=== PATIENT | female | born 1945 | race Caucasian/White ===

== ENCOUNTER 2019-10-24 16:01 | Inpatient (IN) | payer OTHER ==
[~2019-10-24] VITALS: Ht 160 cm; Wt 74.4 kg
--- NOTE | 2019-10-24 16:23 | NUR ---
EKG IN PROGRESS.
[2019-10-24 17:32] LABS: BASOPHIL % 0.5 % (0-2); PLATELET COUNT 233 x10^3mcL (130-400); RED CELL DISTRIBUTION WIDTH 13.8 % (11.5-14.5)
[2019-10-24 17:49] LABS: CARBON DIOXIDE 31.4 mmol/L (21-32); CHLORIDE SERUM 102 mmol/L (98-107); CREATININE SERUM 1.1 mg/dL (0.6-1.0); GLUCOSE SERUM 114 mg/dL (74-106); POTASSIUM SERUM 3.6 mmol/L (3.5-5.1); SODIUM SERUM 143 mmol/L (136-145)
[2019-10-24 17:52] LABS: ALKALINE PHOSPHATASE 52 U/L (46-116); ALT/SGPT 36 U/L (14-59); AST/SGOT 27 U/L (15-37); BILIRUBIN TOTAL 0.34 mg/dL (0.20-1.00); TOTAL PROTEIN, SERUM 7.7 g/dL (6.4-8.2)
--- NOTE | 2019-10-24 18:14 | NUR ---
PT IN ED FOR HIGH BP, STS BILAT SHOULDER PAIN X4 DAYS AND LEFT ARM PAIN ONSET TODAY. PT STS COMPLIANT WITH HTN MEDS. PER DAUGHTER PT HAD A SALTY MEAL TODAY. PT AAO4, RESP E/U, NO DISTRESS. CONNECTED TO FULL CM.
--- NOTE | 2019-10-24 18:53 | NUR ---
PT MEDICATED PER MD ORDERS, PT EDUCATED ON MEDICATION PRIOR TO ADMINISTRATION. DENIES ALLERGIES TO MEDICATIONS.
[2019-10-24] MEDS ORDERED: KAPSPARGO SPRI100 MG PO (19:48)
[2019-10-24] MEDS ORDERED: COZAAR100 MG PO (19:49)
[2019-10-24] MEDS ORDERED: VASERETIC1 EA PO (19:50)
[2019-10-24] MEDS ORDERED: ATORVASTATIN CA40 M1 PO (19:50)
--- NOTE | 2019-10-24 19:55 | NUR ---
PT AAO4, RESP E/U, NO DISTRESS/ REPORT CALLED TO JOHN OLIVER TO ASSUME CARE
--- NOTE | 2019-10-24 19:56 | NUR ---
RECEIVED REPORT FROM ER NURSE. AWAITING PTS ARRIVAL.
--- NOTE | 2019-10-24 20:05 | NUR ---
PT WAS RECEIVED BY PRIMARY NURSE SRAAI FROM ED, CAME IN DUE TO LEFT BACK AND LEFT ARM PAIN X4 DAYS AFTER LIFTING GROCERIES. AAOX4. DENIES HEADACHE/DIZZINESS. NO SOB NOTED, LUNG SOUNDS CTA. DENIES CHEST PAIN/PRESSURE, SR ON THE MONITOR. DENIES ABDOMINAL DISCOMFORT. BOWEL SOUNDS ACTIVE. VOIDS. STATED THAT SHE HAS 5/10 LEFT BACK AND LEFT ARM PAIN ONLY ON MOVEMENT. IV SITE PATENT AND INTACT. SIDE RAILS UPX2. CALL LIGHT ON REACH. PRIMARY NURSE SARAI AT BEDSIDE FOR CONTINUITY OF CARE
[2019-10-24 20:53] VITALS: BP 170/96
[2019-10-24 20:56] VITALS: Ht 160 cm; Wt 74.4 kg
--- NOTE | 2019-10-24 21:50 | NUR ---
ROUTINE MEDICATIONS WERE GIVEN AND TOLERATED WELL. NO ACUTE DISTRESS NOTED. TYLENOL PRN WAS ADMINISTER PER DEC ORDER FOR 5/10 SHOULDER PAIN. WILL REASSESS AND CHECK EFFECTIVENESS. BREATHING IS EVEN AND UNLABORED ON RA. NO SIGNS OF RESP. DISTRESS. BED IN LOWEST POSITION. CALL LIGHT WITHIN REACH. WILL CONTINUE TO MONITOR.
--- NOTE | 2019-10-24 23:40 | NUR ---
PT IS RESTING COMFORTABLY WITH EYES CLOSED, BUT EASILY AROUSABLE WHEN SPOKEN TO. BREATHING IS EVEN AND UNLABORED ON RA. NO RESP DISTRESS NOTED. BED IN LOWEST POSITION. CALL LIGHT WITHIN REACH. WILL CONTINUE TO MONITOR.
--- NOTE | 2019-10-25 01:57 | NUR ---
PT IS RESTING COMFORTABLY IN BED WITH EYES CLOSED, BUT EASILY AROUSABLE WHEN SPOKEN TO. BREATHING IS EVEN AND UNLABORED ON RA. NO SIGNS OF RESP. DISTRESS. BED IN LOWEST POSITION. CALL LIGHT WITHIN REACH. WILL CONTINUE TO MONITOR.
--- NOTE | 2019-10-25 04:05 | NUR ---
PT IS RESTING COMFORTABLY IN BED WITH EYES CLOSED, BUT EASILY AROUSABLE. BREATHING IS EVEN AND UNLABORED ON RA. NO SIGNS OF RESP DISTRESS. BED IN LOWEST POSITION. CALL LIGHT WITHIN REACH. WILL CONTINUE TO MONITOR.
[2019-10-25 05:57] VITALS: BP 137/79
--- NOTE | 2019-10-25 06:20 | NUR ---
PT SLEPT IN LONG INTERVALS THROUGHOUT THE SHIFT AND COMPLIED WITH NURSING CARE WITH NO ACUTE EVENTS OCCURRING DURING THE NIGHT. COMFORT AND SAFETY MEASURES MAINTAINED. ALL NEEDS ASSESSED AND ATTENDED TO. WILL CONTINUE TO MONITOR AND ENDORSE CARE TO DAY SHIFT NURSE.
[2019-10-25 06:52] LABS: BASOPHIL % 0.9 % (0-2); PLATELET COUNT 202 x10^3mcL (130-400); RED CELL DISTRIBUTION WIDTH 13.4 % (11.5-14.5)
--- NOTE | 2019-10-25 07:35 | NUR ---
RECEIVED PT IN BED. ASSESSED AND DOCUMENTED. STABLE. DENIES ANY PAIN THIS TIME. NO DISTRESS NOTED. SAFTEY PRECAUTIONS ARE IN PLACE. WILL MONITOR.
[2019-10-25 09:00] VITALS: BP 140/83
[2019-10-25 11:35] VITALS: BP 140/83
--- NOTE | 2019-10-25 11:55 | NUR ---
NOTIFIED DR JENKINS THAT DR QUINTANILLA SAW THE PATIENT AND OK TO DC PATIENT HOME FROM CARDIAC STANDPOINT. PER DR JENKINS OK TO DC PATIENT HOME.
--- NOTE | 2019-10-25 12:50 | NUR ---
PT'S DAUGHTER CAME TO [employer]UMINUM BOAT INSPECTOR PT. STABLE. DENIES ANY PAIN. DISCHARGE INSTRUCTIONS GIVEN, PB SIGNED AND SENT WITH PT. IV REMOVED AND DRESSING APPLIED. TELE REMOVED AND RETURNED. INTERNATIONAL REPRESENTATIVE WHEELED PT DOWN TO LOBBY ACCOMPANIED WITH DAUGHTER. PT DC HOME.
== END 2019-10-25 12:55 | disposition home or self-care (01) | DRG 563 ==
LOC: ED 16:01 → DU 18:51
PROVIDERS: Emergency Medicine; Specialist; ADMIT Internal Medicine
DX: S46.912A Strain of unspecified muscle, fascia and tendon at shoulder and upper arm level, left arm, initial encounter (principal); R07.89 Other chest pain; I10 Essential (primary) hypertension; E78.5 Hyperlipidemia, unspecified; Z68.29 Body mass index [BMI] 29.0-29.9, adult; X58.XXXA Exposure to other specified factors, initial encounter; Y92.009 Unspecified place in unspecified non-institutional (private) residence as the place of occurrence of the external cause
CPT/HCPCS: G0378